=== PATIENT | male | born 1940 | race Caucasian/White ===

== ENCOUNTER 2023-01-20 07:17 | Observation (INO) | payer OTHER ==
[2023-01-15 11:38] LABS: BASOPHILS # (AUTO) 0.02 K/uL (0.00-0.20); BASOPHILS % (AUTO) 0.2 % (0.0-5.0); EOSINOPHILS # (AUTO) 0.08 K/uL (0.00-0.70); EOSINOPHILS % (AUTO) 0.8 % (0.0-8.0); HEMATOCRIT 34.1 % (42-54); IMMATURE GRANULOCYTE ABSOLUTE 0.05 K/uL (0-1); LYMPHOCYTES # (AUTO) 1.4 K/uL (1.0-4.8); LYMPHOCYTES % (AUTO) 13.3 % (21.0-51.0); MEAN CORPUSCULAR HEMOGLOBIN 36.4 pg (27.0-33.0); MEAN CORPUSCULAR HGB CONC 32.6 g/dL (32.0-36.0); MEAN CORPUSCULAR VOLUME 111.8 fL (79-99); MONOCYTES % (AUTO) 19.1 % (3.0-13.0); NEUTROPHILS # (AUTO) 6.8 K/uL (1.8-7.7); NEUTROPHILS % (AUTO) 66.1 % (40.0-77.0); PLATELET COUNT (AUTO) 182 K/uL (130-400); RED BLOOD CELL COUNT(AUTO) 3.05 MIL/uL (4.50-6.20); RED CELL DISTRIBUTION WIDTH 17.3 % (11.0-15.5); WHITE BLOOD COUNT (AUTO) 10.3 K/uL (4.8-10.8)
[2023-01-15 11:48] LABS: INR 0.98 (0.85-1.15); PROTHROMBIN TIME 11.4 SEC (9.6-11.6)
[2023-01-15 11:49] LABS: CREATININE 0.9 mg/dL (0.5-1.5)
[2023-01-15 11:50] LABS: PARTIAL THROMBOPLASTIN TIME 28.4 SEC (26.3-35.5)
[2023-01-15 12:19] VITALS: BP 135/59; PULSE 75; RESP 19
[2023-01-20] VITALS (41 sets, daily range): BP systolic 75–148; BP diastolic 36–73; PULSE 53–104; RESP 11–20; O2SAT 97–100
[~2023-01-20] VITALS: Ht 171.4 cm; Wt 75.7 kg
[~2023-01-20 07:17] MED LIST: ALBU6.7H14 IH; FLUT1BLS3 IH; IBUP-2784 PO; MULT200T12 PO; PRAV40TA3 PO; VITAMIN D PO; ZINC GUMMIES PO; vitamin c gummies PO
[2023-01-20] MEDS ORDERED: LACTATED RINGERS 1000ML 1,000 ML IV ONE (08:35)
[2023-01-20] MEDS: CEFAZOLIN SODIUM 2 GM VIAL ONE ×2 (08:54→10:31)
[2023-01-20] MEDS ORDERED: LIDOCAINE PF 100MG/5ML (2%) SYRINGE 5ML ONE (09:40)
[2023-01-20] MEDS ORDERED: ROCURONIUM 10MG/1ML SYR 10 MG/ML ML ONE (09:41)
[2023-01-20] MEDS ORDERED: PROPOFOL 10 MG/ML 20ML VIAL IV ONE (09:41)
[2023-01-20] MEDS ORDERED: FENTANYL CITRATE PF 50 MCG/1 ML 2ML VIAL ONE (09:41)
[2023-01-20] MEDS ORDERED: MIDAZOLAM HCL 1 MG/ML 2ML VIAL ONE (09:41)
[2023-01-20] MEDS ORDERED: ONDANSETRON 4MG INJ ONE (09:45)
[2023-01-20] MEDS ORDERED: ROPIVACAINE 0.5% 5MG/ML 30ML IJ ONE (09:47)
[2023-01-20] MEDS ORDERED: BUPIVACAINE/PF 0.25% 30ML VIAL IJ ONE (10:01)
[2023-01-20] MEDS ORDERED: TYLENOL ARTHRITIS PO (10:23)
[2023-01-20] MEDS ORDERED: NEOSTIGMINE 5MG/5ML SYR IV ONE (11:09)
[2023-01-20] MEDS ORDERED: GLYCOPYRROLATE 1 MG/5 ML SYRINGE ONE (11:09)
[2023-01-20] MEDS ORDERED: DOCU-116 PO (11:13)
[2023-01-20] MEDS ORDERED: GABA-529 PO (11:13)
[2023-01-20] MEDS ORDERED: METH-662 PO (11:13)
[2023-01-20] MEDS ORDERED: IPRATROPIUM/ALBUTEROL SULFATE 3 ML SOLUTION IH ONE (12:30)
[2023-01-20] MEDS ORDERED: ALBUTEROL 0.083% 2.5 MG/3 ML INH IH ONE (15:30)
[2023-01-20] MEDS ORDERED: ONDANSETRON 4MG INJ IVP PRN (16:30)
[2023-01-20] MEDS ORDERED: CLONIDINE HCL 0.1 MG TABLET PO PRN (16:30)
[2023-01-20] MEDS ORDERED: ACETAMINOPHEN 325 MG TAB PO PRN (16:30)
[2023-01-20] MEDS ORDERED: HYDRALAZINE 20MG/ML VIAL IV PRN (16:30)
[2023-01-20] MEDS ORDERED: ACETAMINOPHEN 650 MG SUPPOSITORY RC PRN (16:30)
[2023-01-20] MEDS ORDERED: HYDROCODONE/ACETAMINOPHEN 5/325 MG TAB PO PRN (16:30)
[2023-01-20] MEDS ORDERED: LACTULOSE 20 GM/30 ML UDCUP PO PRN (16:30)
[2023-01-20] MEDS: 0.9%NACL 1000ML 1,000 ML IV SCH (17:49)
[2023-01-20] MEDS: LEVOFLOXACIN 500 MG/D5W 100 ML IV SCH (18:01)
[2023-01-20] MEDS ORDERED: IOHEXOL-350 75 ML VIAL IV ONE (18:13)
[2023-01-20 18:48] LABS: SARS-CoV-2, RNA, NAAT NEGATIVE SARS CoV-2 (NEGATIVE)
[2023-01-20 18:53] LABS: INFLUENZA TYPE A Negative For Type A (NEGATIVE); INFLUENZA TYPE B Negative For Type B (NEGATIVE)
[2023-01-20] MEDS: IPRATROPIUM/ALBUTEROL SULFATE 3 ML SOLUTION IH SCH ×2 (19:30→23:21)
[2023-01-21] VITALS (8 sets, daily range): BP systolic 121–155; BP diastolic 71–91; PULSE 78–121; RESP 18–24; O2SAT 87–98
[2023-01-21 07:22] LABS: MAGNESIUM 1.8 mg/dL (1.80-2.40); POTASSIUM 4.8 mmol/L (3.5-5.1)
[2023-01-21] MEDS ORDERED: TYLENOL ARTHRITIS PO PRN (08:30)
[2023-01-21] MEDS ORDERED: ALBUTEROL SULFATE IH PRN (08:30)
[2023-01-21] MEDS: [UNRECOGNIZED DRUG - OTHER] PO SCH (09:00)
[2023-01-21] MEDS ORDERED: NON-FORMULARY MEDICATION 1 EACH (Pravastatin Sodium 40 MG) PO SCH (09:00)
[2023-01-21] MEDS: METHOCARBAMOL 500 MG PO SCH ×2 (09:00→13:00)
[2023-01-21] MEDS: FOLIC ACID PO SCH (09:00)
[2023-01-21] MEDS: MULTIVIT MINERALS PO SCH (09:00)
[2023-01-21] MEDS: POLYETHYLENE GLYCOL 3350 17 GM POWD.PACK PO SCH (10:57)
[2023-01-21] MEDS: DOCUSATE SODIUM 100 MG CAP PO SCH ×2 (10:58→20:43)
[2023-01-21] MEDS: PANTOPRAZOLE 40 MG TAB DR PO SCH (10:58)
[2023-01-21] MEDS: ENOXAPARIN SODIUM 40 MG/0.4 ML SYRINGE SQ SCH (10:59)
[2023-01-21] MEDS: GABAPENTIN 100 MG CAPSULE PO SCH ×3 (11:00→20:44)
[2023-01-21] MEDS: IPRATROPIUM/ALBUTEROL SULFATE 3 ML SOLUTION IH SCH (11:01)
[2023-01-21] MEDS: LEVOFLOXACIN 500 MG/D5W 100 ML IV SCH (16:55)
[2023-01-21] MEDS: TAMSULOSIN HCL 0.4 MG CAP.ER.24H PO SCH (16:55)
[2023-01-21] MEDS ORDERED: ATORVASTATIN 10 MG TABLET PO SCH (21:00)
[2023-01-21] MEDS ORDERED: LEVO-70 PO (22:08)
[2023-01-21] MEDS ORDERED: TAMS-1 PO (22:09)
[2023-01-22] VITALS: BP 114/64; PULSE 96; RESP 18
[2023-01-22 04:00] VITALS: BP 116/65; PULSE 87; RESP 20
[2023-01-22 07:18] VITALS: PULSE 89; RESP 18; O2SAT 98
[2023-01-22 08:00] VITALS: BP 134/76; PULSE 86; RESP 16; O2SAT 99
[2023-01-22] MEDS: 0.9%NACL 1000ML 1,000 ML IV SCH (08:30)
[2023-01-22] MEDS: MULTIVIT MINERALS PO SCH (09:00)
[2023-01-22] MEDS: [UNRECOGNIZED DRUG - OTHER] PO SCH (09:00)
[2023-01-22] MEDS: FOLIC ACID PO SCH (09:00)
[2023-01-22] MEDS: METHOCARBAMOL 500 MG PO SCH (09:00)
[2023-01-22] MEDS: GABAPENTIN 100 MG CAPSULE PO SCH (09:15)
[2023-01-22] MEDS: PANTOPRAZOLE 40 MG TAB DR PO SCH (09:15)
[2023-01-22] MEDS: TAMSULOSIN HCL 0.4 MG CAP.ER.24H PO SCH (09:15)
[2023-01-22] MEDS: DOCUSATE SODIUM 100 MG CAP PO SCH (09:15)
[2023-01-22] MEDS: POLYETHYLENE GLYCOL 3350 17 GM POWD.PACK PO SCH (09:16)
[2023-01-22] MEDS: ENOXAPARIN SODIUM 40 MG/0.4 ML SYRINGE SQ SCH (09:16)
[2023-01-22 12:00] VITALS: BP 153/99; PULSE 99; RESP 16
== END 2023-01-22 16:00 | disposition home or self-care (01) ==
LOC: DAH 07:17 → DAHIP 07:18 → DAH 07:18 → 3DH 17:25
PROVIDERS: ADMIT Internal Medicine Critical Care Medicine; ATTEND Internal Medicine Critical Care Medicine
DX: K43.9 Ventral hernia without obstruction or gangrene (principal); Z20.822 Contact with and (suspected) exposure to COVID-19; J44.1 Chronic obstructive pulmonary disease with (acute) exacerbation; J43.9 Emphysema, unspecified; J96.21 Acute and chronic respiratory failure with hypoxia; J84.10 Pulmonary fibrosis, unspecified; E78.5 Hyperlipidemia, unspecified; Z87.891 Personal history of nicotine dependence; Z79.899 Other long term (current) drug therapy; Z98.890 Other specified postprocedural states
CPT/HCPCS: 80048 ×2; 85025; 85610; 85730; 36415 ×2; 93005; 94640 ×5; 49616; 96365; 87804 ×2; 87635; 71046; 71270; 36600; 94664; 94760 ×3; 96372 ×2; 96366; 83735; A6260; G0378 ×47; A4600; A4663; J7030 ×2; J7120 ×2; J3010; J3490; J2710; J1956 ×2; J0665; J2001; J2250; J2704; J2405; J2795; Q9967; J0690; C1769 ×2; A4649; A4930 ×2; A4215; A4223; A4222; A4221; J1650 ×2

== ENCOUNTER → 2023-03-09 | Outpatient (CLI) | payer OTHER ==
[~2023-03-09] VITALS: Ht 175.3 cm; Wt 72.3 kg
[~2023-03-09] MED LIST changes: +DOCU-116 PO; +GABA-529 PO; +LEVO-70 PO; +METH-662 PO; +TAMS-1 PO; +TYLENOL ARTHRITIS PO
[2023-03-09 12:38] LABS: BASOPHILS # (AUTO) 0.02 K/uL (0.00-0.20); BASOPHILS % (AUTO) 0.2 % (0.0-5.0); EOSINOPHILS # (AUTO) 0.12 K/uL (0.00-0.70); EOSINOPHILS % (AUTO) 1.1 % (0.0-8.0); HEMATOCRIT 34.8 % (42-54); IMMATURE GRANULOCYTE ABSOLUTE 0.07 K/uL (0-1); LYMPHOCYTES # (AUTO) 1.4 K/uL (1.0-4.8); LYMPHOCYTES % (AUTO) 13.2 % (21.0-51.0); MEAN CORPUSCULAR HEMOGLOBIN 35.8 pg (27.0-33.0); MEAN CORPUSCULAR HGB CONC 31.6 g/dL (32.0-36.0); MEAN CORPUSCULAR VOLUME 113.4 fL (79-99); MONOCYTES # (AUTO) 2.3 K/uL (0.1-1.0); NEUTROPHILS % (AUTO) 63.9 % (40.0-77.0); PLATELET COUNT (AUTO) 174 K/uL (130-400); RED BLOOD CELL COUNT(AUTO) 3.07 MIL/uL (4.50-6.20); RED CELL DISTRIBUTION WIDTH 17.5 % (11.0-15.5); WHITE BLOOD COUNT (AUTO) 10.9 K/uL (4.8-10.8)
[2023-03-09 12:48] VITALS: BP 161/68; PULSE 96; RESP 18
[2023-03-09 12:50] LABS: APPEARANCE,URINE CLOUDY (CLEAR); BILIRUBIN,URINE NEGATIVE (NEGATIVE); COLOR,URINE YELLOW (YELLOW); GLUCOSE, URINE (UA) NEGATIVE (NEGATIVE); KETONES,URINE NEGATIVE (NEGATIVE); LEUKOCYTE ESTERASE ,URINE 500 Leu/uL (NEGATIVE); NITRATE,URINE 2+ (NEGATIVE); OCCULT BLOOD,URINE NEGATIVE (NEGATIVE); PH,URINE 6.5 (5.0-8.0); PROTEIN,URINE 30 mg/dL (NEGATIVE); UROBILINOGEN,URINE 0.2 mg/dL (0.2-1.0)
[2023-03-09 12:51] LABS: ADD UA MICROSCOPIC YES
[2023-03-09 12:56] LABS: CREATININE 0.8 mg/dL (0.5-1.5); POTASSIUM 4.7 mmol/L (3.5-5.1); PROTHROMBIN TIME 11.6 SEC (9.6-11.6)
[2023-03-09 12:57] LABS: PARTIAL THROMBOPLASTIN TIME 29.3 SEC (26.3-35.5)
[2023-03-09 13:52] LABS: BACTERIA,URINE MOD /HPF (None Seen); CALCIUM OXALATE CRYSTALS,UR RARE /LPF (None Seen); MUCUS,URINE FEW LPF (None Seen); WBC,URINE 51-100 /HPF (0-1)
== END | disposition home or self-care (01) ==
LOC: DAH 10:00 → EDSTATUS 14:00
PROVIDERS: ATTEND Urology
DX: Z01.818 Encounter for other preprocedural examination (principal); N40.1 Benign prostatic hyperplasia with lower urinary tract symptoms
CPT/HCPCS: 71045; 80048; 85025; 85610; 85730; 87077; 87088; 87186; 81001; 36415; 93005; A6260

== ENCOUNTER → 2023-03-20 | Outpatient (CLI) | payer OTHER ==
[~2023-03-20] MED LIST changes: -DOCU-116 PO; -GABA-529 PO; -IBUP-2784 PO; -METH-662 PO; +REGADENOSON 0.4 MG/5 ML PF SYG IVP ONE; -TAMS-1 PO; -TYLENOL ARTHRITIS PO
== END | disposition home or self-care (01) ==
LOC: SHCH 08:02
PROVIDERS: ATTEND Internal Medicine Cardiovascular Disease
DX: I25.10 Atherosclerotic heart disease of native coronary artery without angina pectoris (principal); R07.9 Chest pain, unspecified
CPT/HCPCS: 78452; 96374; 93017; J2785; A9500 ×2

== ENCOUNTER 2023-04-25 23:16 | Emergency (ER) | payer OTHER ==
[~2023-04-25] VITALS: Ht 175.3 cm; Wt 70.3 kg
[~2023-04-25 23:16] MED LIST changes: -REGADENOSON 0.4 MG/5 ML PF SYG IVP ONE
[2023-04-25 23:45] LABS: BASOPHILS # (AUTO) 0.02 K/uL (0.00-0.20); BASOPHILS % (AUTO) 0.2 % (0.0-5.0); EOSINOPHILS # (AUTO) 0.06 K/uL (0.00-0.70); EOSINOPHILS % (AUTO) 0.5 % (0.0-8.0); HEMATOCRIT 32.3 % (42-54); IMMATURE GRANULOCYTE ABSOLUTE 0.14 K/uL (0-1); LYMPHOCYTES # (AUTO) 1.3 K/uL (1.0-4.8); LYMPHOCYTES % (AUTO) 10.6 % (21.0-51.0); MEAN CORPUSCULAR HEMOGLOBIN 35.7 pg (27.0-33.0); MEAN CORPUSCULAR HGB CONC 31.6 g/dL (32.0-36.0); MEAN CORPUSCULAR VOLUME 112.9 fL (79-99); MONOCYTES % (AUTO) 16.4 % (3.0-13.0); NEUTROPHILS # (AUTO) 8.6 K/uL (1.8-7.7); NEUTROPHILS % (AUTO) 71.1 % (40.0-77.0); PLATELET COUNT (AUTO) 225 K/uL (130-400); RED BLOOD CELL COUNT(AUTO) 2.86 MIL/uL (4.50-6.20); RED CELL DISTRIBUTION WIDTH 17.2 % (11.0-15.5); WHITE BLOOD COUNT (AUTO) 12.1 K/uL (4.8-10.8)
[2023-04-25 23:59] LABS: CREATININE 0.8 mg/dL (0.5-1.5); POTASSIUM 4.1 mmol/L (3.5-5.1)
[2023-04-26 00:04] LABS: ALBUMIN 3.3 g/dL (3.5-5.0); BILIRUBIN,TOTAL 0.5 mg/dL (0.2-1.0); TOTAL PROTEIN, SERUM 7.9 g/dL (6.0-8.3)
[2023-04-26 01:32] LABS: APPEARANCE,URINE SL CLOUDY (CLEAR); BILIRUBIN,URINE NEGATIVE (NEGATIVE); COLOR,URINE YELLOW (YELLOW); GLUCOSE, URINE (UA) NEGATIVE (NEGATIVE); KETONES,URINE NEGATIVE (NEGATIVE); LEUKOCYTE ESTERASE ,URINE LARGE Leu/uL (NEGATIVE); NITRATE,URINE NEGATIVE (NEGATIVE); OCCULT BLOOD,URINE SMALL (NEGATIVE); PH,URINE 6.5 (5.0-8.0); PROTEIN,URINE TRACE mg/dL (NEGATIVE); UROBILINOGEN,URINE 0.2 mg/dL (0.2-1.0)
[2023-04-26 01:33] LABS: ADD UA MICROSCOPIC YES
[2023-04-26 01:34] LABS: BACTERIA,URINE Moderate /HPF (None Seen); RBC,URINE 0-1 /HPF (0-1); SQUAMOUS EPITHELIAL CELL,UR Rare /HPF (0-2); WBC,URINE 15 /HPF (0-1)
[2023-04-26 01:35] LABS: AMORPHOUS SEDIMENT,UR Rare /LPF (None Seen); MUCUS,URINE Rare LPF (None Seen)
[2023-04-26 05:14] VITALS: BP 146/76; PULSE 95; RESP 17; O2SAT 98
== END 2023-04-26 06:19 | disposition home or self-care (01) ==
LOC: EDH 23:16
DX: T83.091A Other mechanical complication of indwelling urethral catheter, initial encounter (principal); R33.9 Retention of urine, unspecified; N40.1 Benign prostatic hyperplasia with lower urinary tract symptoms; N13.8 Other obstructive and reflux uropathy; J44.9 Chronic obstructive pulmonary disease, unspecified; J45.909 Unspecified asthma, uncomplicated; Y82.9 Unspecified medical devices associated with adverse incidents; Y92.89 Other specified places as the place of occurrence of the external cause
CPT/HCPCS: 36415; 74177; 80053; 81001; 83605; 85025; 87040; 87077; 87088; 87186

== ENCOUNTER 2023-05-10 23:33 | Emergency (ER) | payer OTHER ==
[~2023-05-10] VITALS: Ht 175.3 cm; Wt 72.6 kg
[2023-05-10 23:35] VITALS: BP 154/74; PULSE 97; RESP 20
[2023-05-15] MEDS ORDERED: [UNRECOGNIZED DRUG - CODE] PO (12:23)
[2023-05-15] MEDS ORDERED: PRAV40TA3 PO (12:23)
[2023-05-15] MEDS ORDERED: FLUT1BLS3 IH (12:23)
[2023-05-15] MEDS ORDERED: ALBU6.7H14 IH (12:23)
[2023-05-15] MEDS ORDERED: PRED10TA3 PO (12:24)
== END 2023-05-11 00:58 | disposition left against medical advice (07) ==
LOC: EDH 23:33
DX: T83.091A Other mechanical complication of indwelling urethral catheter, initial encounter (principal); Z53.21 Procedure and treatment not carried out due to patient leaving prior to being seen by health care provider

== ENCOUNTER 2023-05-11 10:37 | Emergency (ER) | payer OTHER ==
[~2023-05-11] VITALS: Ht 175.3 cm; Wt 72.6 kg
[2023-05-11 12:51] VITALS: BP 146/72; PULSE 100; RESP 16; O2SAT 99
[2023-05-15] MEDS ORDERED: [UNRECOGNIZED DRUG - CODE] PO (12:23)
[2023-05-15] MEDS ORDERED: PRAV40TA3 PO (12:23)
[2023-05-15] MEDS ORDERED: FLUT1BLS3 IH (12:23)
[2023-05-15] MEDS ORDERED: ALBU6.7H14 IH (12:23)
[2023-05-15] MEDS ORDERED: PRED10TA3 PO (12:24)
== END 2023-05-11 12:57 | disposition home or self-care (01) ==
LOC: EDH 10:37
DX: T83.091A Other mechanical complication of indwelling urethral catheter, initial encounter (principal); J45.909 Unspecified asthma, uncomplicated; J44.9 Chronic obstructive pulmonary disease, unspecified; Y82.9 Unspecified medical devices associated with adverse incidents; Y92.89 Other specified places as the place of occurrence of the external cause
CPT/HCPCS: 51702